=== PATIENT | male | born 1985 | race African-American/Black ===

== ENCOUNTER 2019-04-16 18:52 | Emergency (ER) | payer MEDICAID ==
[~2019-04-16] VITALS: Ht 185.4 cm; Wt 136.0 kg
[2019-04-16] MEDS ORDERED: BACITRACIN ZINC OINT UDPKT TOP ONE (20:30)
[2019-04-16] MEDS ORDERED: LIDOCAINE HCL/PF 1% 10 MG/ML 5ML VIAL IJ ONE (20:30)
[2019-04-16] MEDS ORDERED: IBUPROFEN 400MG TABLET PO ONE (20:45)
[2019-04-16 21:53] VITALS: BP 151/93
== END 2019-04-16 21:55 | disposition home or self-care (01) ==
LOC: ER 20:38
DX: L03.011 Cellulitis of right finger (principal); Z90.49 Acquired absence of other specified parts of digestive tract; Z88.0 Allergy status to penicillin
CPT/HCPCS: 10060; 73130; 99283; J3490

== ENCOUNTER 2019-06-30 14:34 | Emergency (ER) | payer MEDICAID ==
[~2019-06-30] VITALS: Ht 190.5 cm; Wt 133.0 kg
[2019-06-30 15:33] VITALS: BP 167/124
[2019-06-30] MEDS ORDERED: LIDOCAINE HCL/PF 1% 10 MG/ML 5ML VIAL IJ ONE (16:30)
[2019-06-30] MEDS ORDERED: TETANUS, DIPHTHERIA, PERTUSSIS VAC/PF 0.5ML (>7YR OLD) IM ONE (16:30)
== END 2019-06-30 17:21 | disposition home or self-care (01) ==
LOC: ER 14:34
DX: L03.012 Cellulitis of left finger (principal); M79.645 Pain in left finger(s); Z90.49 Acquired absence of other specified parts of digestive tract; Z88.0 Allergy status to penicillin
CPT/HCPCS: 10060; 90471; 90715; 99283; J3490; Z7610

== ENCOUNTER 2019-07-14 21:26 | Emergency (ER) | payer OTHER ==
[~2019-07-14] VITALS: Ht 185.4 cm; Wt 127.0 kg
[2019-07-14] MEDS ORDERED: SODIUM CHLORIDE 0.9% 1,000 ML IV ONE (22:26)
[2019-07-14] MEDS ORDERED: LIDOCAINE HCL/PF 1% 10 MG/ML 5ML VIAL IJ ONE (22:30)
[2019-07-14] MEDS ORDERED: IBUPROFEN 600MG TABLET PO ONE (22:30)
[2019-07-14] MEDS ORDERED: BACITRACIN ZINC OINT UDPKT TOP ONE (22:30)
[2019-07-14] MEDS ORDERED: TETANUS, DIPHTHERIA, PERTUSSIS VAC/PF 0.5ML (>7YR OLD) IM ONE (22:30)
[2019-07-14 23:30] LABS: CLARITY URINE CLEAR (CLEAR); COLOR URINE YELLOW (YELLOW); KETONES URINE NEGATIVE (NEGATIVE); LEUKOCYTE ESTERASE URINE NEGATIVE (NEGATIVE); NITRITE URINE NEGATIVE (NEGATIVE); OCCULT BLOOD URINE NEGATIVE (NEGATIVE); PH URINE 6.5 (4.5-8.0); PROTEIN URINE NEGATIVE (NEGATIVE); SPECIFIC GRAVITY URINE 1.016 (1.005-1.030); UROBILINOGEN URINE 0.2 E.U./dL (0.2-1.0)
[2019-07-14 23:41] LABS: *AMPHETAMINES SCREEN URINE PRESUMTIVE POSITIVE (NEGATIVE); *BARBITURATES SCREEN URINE NEGATIVE (NEGATIVE); *BENZODIAZEPINES SCREEN URINE NEGATIVE (NEGATIVE); *COCAINE SCREEN URINE NEGATIVE (NEGATIVE); METHADONE URINE SCREEN NEGATIVE (NEGATIVE); OPIATES URINE SCREEN NEGATIVE (NEGATIVE)
[2019-07-14 23:42] LABS: CANNABINOID URINE SCREEN NEGATIVE (NEGATIVE); PHENCYCLIDINE URINE SCREEN NEGATIVE (NEGATIVE)
[2019-07-14 23:52] LABS: BASOPHILS % 0.1 % (0.0-2.0); EOSINOPHILS % 0.2 % (0.0-5.0); HEMATOCRIT. 45.4 % (42.0-52.0); HEMOGLOBIN. 14.3 g/dL (14.0-18.0); LYMPHOCYTES % 10.8 % (20.0-50.0); MEAN CORPUSCULAR HEMOGLOBIN 24.1 pg (28.0-32.0); MEAN CORPUSCULAR VOLUME 76.5 fL (80.0-94.0); MEAN PLATELET VOLUME 9.2 fl (7.4-10.4); MONOCYTES % 4.8 % (2.0-8.0); NEUTROPHILS % 84.1 % (40.0-76.0); PLATELET 193 x1000/uL (130-400); RED BLOOD CELL COUNT 5.94 mill/uL (4.7-6.1); RED CELL DISTRIBUTION WIDTH 16.7 % (11.6-14.6)
[2019-07-14 23:57] LABS: CHLORIDE 107 mEq/L (98-107)
[2019-07-15 00:01] LABS: ETHANOL BLOOD < 10 mg/dL
[2019-07-15 03:07] VITALS: BP 147/90
== END 2019-07-15 03:09 | disposition home or self-care (01) ==
LOC: ER 21:26
DX: S61.301A Unspecified open wound of left index finger with damage to nail, initial encounter (principal); F15.229 Other stimulant dependence with intoxication, unspecified; F20.9 Schizophrenia, unspecified; Z88.0 Allergy status to penicillin; Z90.49 Acquired absence of other specified parts of digestive tract; X58.XXXA Exposure to other specified factors, initial encounter; Y93.89 Activity, other specified; Y92.018 Other place in single-family (private) house as the place of occurrence of the external cause
CPT/HCPCS: 11730; 36415; 80053; 80305; 80320; 81003; 85025; 90471; 90715; 99283; J3490; J7030; Z7610; G0480

== ENCOUNTER 2019-08-12 07:20 | Emergency (ER) | payer OTHER ==
[~2019-08-12] VITALS: Ht 188 cm; Wt 137.0 kg
[2019-08-12] MEDS ORDERED: ARIPIPRAZOLE 10MG TABLET PO ONE (08:15)
[2019-08-12] MEDS ORDERED: ARIPIPRAZOLE 5MG TABLET PO ONE (08:30)
[2019-08-12 08:31] VITALS: BP 122/85
== END 2019-08-12 08:39 | disposition home or self-care (01) ==
LOC: ER 07:59
DX: F20.9 Schizophrenia, unspecified (principal); Z90.49 Acquired absence of other specified parts of digestive tract; Z88.0 Allergy status to penicillin
CPT/HCPCS: 99283

== ENCOUNTER 2022-01-29 18:47 | Emergency (ER) | payer MEDICAID, OTHER ==
[~2022-01-29] VITALS: Ht 190.5 cm; Wt 132.0 kg
[2022-01-29 21:59] LABS: BASOPHILS % 0.7 % (0.0-2.0); EOSINOPHILS % 1.7 % (0.0-5.0); HEMATOCRIT. 40.9 % (42.0-52.0); HEMOGLOBIN. 13.1 g/dL (14.0-18.0); LYMPHOCYTES % 14.6 % (20.0-50.0); MEAN CORPUSCULAR HEMOGLOBIN 24.7 pg (28.0-32.0); MEAN CORPUSCULAR VOLUME 77.1 fL (80.0-94.0); MEAN PLATELET VOLUME 8.6 fl (7.4-10.4); MONOCYTES % 7.9 % (2.0-8.0); NEUTROPHILS % 75.1 % (40.0-76.0); PLATELET 190 x1000/uL (130-400); RED CELL DISTRIBUTION WIDTH 16.3 % (11.6-14.6)
[2022-01-29 22:04] LABS: CHLORIDE 106 mEq/L (98-107)
[2022-01-29] MEDS ORDERED: METO-385 MT (22:38)
[2022-01-29 22:50] VITALS: BP 166/78
== END 2022-01-29 22:50 | disposition home or self-care (01) ==
LOC: ER 18:47
DX: I10 Essential (primary) hypertension (principal); R73.03 Prediabetes; F20.9 Schizophrenia, unspecified; Z90.49 Acquired absence of other specified parts of digestive tract; Z88.0 Allergy status to penicillin
CPT/HCPCS: 36415; 80048; 85025; 99283

== ENCOUNTER 2022-04-28 14:05 | Emergency (ER) | payer MEDICAID ==
[~2022-04-28] VITALS: Ht 177.8 cm; Wt 120.0 kg
[~2022-04-28 14:05] MED LIST: METO-385 MT
[2022-04-28] MEDS ORDERED: KETOROLAC 30MG/ML VIAL IM ONE (17:15)
[2022-04-28 20:29] LABS: BASOPHILS % 0.9 % (0.0-2.0); EOSINOPHILS % 0.5 % (0.0-5.0); HEMATOCRIT. 42.5 % (42.0-52.0); HEMOGLOBIN. 14.1 g/dL (14.0-18.0); LYMPHOCYTES % 12.1 % (20.0-50.0); MEAN CORPUSCULAR VOLUME 78.3 fL (80.0-94.0); MEAN PLATELET VOLUME 9.1 fl (7.4-10.4); MONOCYTES % 9.4 % (2.0-8.0); NEUTROPHILS % 77.1 % (40.0-76.0); PLATELET 130 x1000/uL (130-400); RED BLOOD CELL COUNT 5.42 mill/uL (4.7-6.1); RED CELL DISTRIBUTION WIDTH 16.6 % (11.6-14.6)
[2022-04-28 20:41] LABS: CHLORIDE 102 mEq/L (98-107)
[2022-04-28] MEDS ORDERED: IOHEXOL-300 100 ML BOTTLE ONE (21:23)
[2022-04-28 22:36] VITALS: BP 122/76
[2022-04-28] MEDS ORDERED: POTASSIUM CHLORIDE 20MEQ/PACKET PO NR (23:15)
== END 2022-04-28 23:21 | disposition home or self-care (01) ==
LOC: ER 14:05
DX: J10.1 Influenza due to other identified influenza virus with other respiratory manifestations (principal); E87.6 Hypokalemia; Z90.49 Acquired absence of other specified parts of digestive tract; Z86.59 Personal history of other mental and behavioral disorders; Z88.0 Allergy status to penicillin
CPT/HCPCS: 36415; 71045; 71260; 80053; 85025; 87804; 96372; 99285; J1885; Q9967

== ENCOUNTER 2022-10-04 10:28 | Emergency (ER) | payer MEDICAID ==
[~2022-10-04] VITALS: Ht 190.5 cm; Wt 143.6 kg
[2022-10-04 10:34] VITALS: BP 152/94
[2022-10-04] MEDS ORDERED: IBUP-2028 MT (11:41)
[2022-10-04] MEDS ORDERED: IBUPROFEN 600MG TABLET PO ONE (11:45)
[2022-10-04] MEDS ORDERED: KETOROLAC 60MG/2ML VIAL IM ONE (12:00)
== END 2022-10-04 12:06 | disposition home or self-care (01) ==
LOC: ER 10:28
DX: S62.101A Fracture of unspecified carpal bone, right wrist, initial encounter for closed fracture (principal); X58.XXXA Exposure to other specified factors, initial encounter; Y93.89 Activity, other specified; Y92.89 Other specified places as the place of occurrence of the external cause; Y99.8 Other external cause status; F20.9 Schizophrenia, unspecified; Z90.49 Acquired absence of other specified parts of digestive tract
CPT/HCPCS: 96372; 99283; J1885; Z7610

== ENCOUNTER 2022-10-06 08:46 | Emergency (ER) | payer MEDICAID ==
[~2022-10-06] VITALS: Ht 190.5 cm; Wt 143.0 kg
[~2022-10-06 08:46] MED LIST changes: +IBUP-2028 MT
[2022-10-06 08:51] VITALS: BP 159/98; PULSE 100; RESP 16; TEMP 98.4; O2SAT 98
[2022-10-06] MEDS ORDERED: KETOROLAC 60MG/2ML VIAL IM ONE (10:15)
[2022-10-06] MEDS ORDERED: NAPR500T7 MT (11:30)
== END 2022-10-06 11:45 | disposition home or self-care (01) ==
LOC: ER 08:46
DX: S52.611A Displaced fracture of right ulna styloid process, initial encounter for closed fracture (principal); Z88.0 Allergy status to penicillin; W18.30XA Fall on same level, unspecified, initial encounter; Y93.89 Activity, other specified; Y92.89 Other specified places as the place of occurrence of the external cause; Y99.8 Other external cause status
CPT/HCPCS: 29125; 73090; 73110; 73130; 99284; J1885; A4565